=== PATIENT | male | born 1960 | race American Indian/Alaskan Native ===

== ENCOUNTER 2020-11-10 13:47 | Emergency (ER) | payer SELFPAY ==
[2020-11-10 15:09] VITALS: BP 129/88
--- NOTE | 2020-11-10 15:17 | Event Note ---
ED Screening Note Date of service: 11/10/20 Time: 15:16 ED Screening Note: c/o right thigh pain no injury denies PMHx This initial assessment/diagnostic orders/clinical plan/treatment(s) is/are subject to change based on patients health status, clinical progression and re- assessment by fellow clinical providers in the ED. Further treatment and workup at subsequent clinical providers discretion. Patient/guardian urged not to elope from the ED as their condition may be serious if not clinically assessed and managed. Initial orders include: US XR
--- NOTE | 2020-11-10 16:13 | XRay Report ---
RIGHT FEMUR 4 VIEWS INDICATION / CLINICAL INFORMATION: Pain along the right thigh, no known injury. COMPARISON: None available. FINDINGS: BONES and JOINT(S): No acute fracture or subluxation. There is mild osteoarthritis of the hip. SOFT TISSUES: No significant abnormality. ADDITIONAL FINDINGS: None. IMPRESSION: 1. No acute findings. 2. Mild right hip osteoarthritis. Signer Name: Esteban Miranda MD Signed: 11/10/2020 4:08 PM Workstation Name: [id number]
--- NOTE | 2020-11-10 16:30 | Vascular Lab Report ---
Bilateral lower extremity Doppler venous ultrasound INDICATION: Pain FINDINGS: Bilateral common femoral veins, superficial femoral veins and popliteal veins have normal c ompressibility and phasic flow. IMPRESSION: No evidence for DVT in bilateral lower extremities. Signer Name: Brad Corbin MD Signed: 11/10/2020 4:25 PM Workstation Name: [id number]
--- NOTE | 2020-11-10 16:47 | Emergency Department Report ---
ED Extremity Problem HPI - General Chief complaint: Extremity Problem,Nontraumatic Stated complaint: RT LEG PAIN Time Seen by Provider: 11/10/20 16:21 Source: patient Mode of arrival: Ambulatory Limitations: No Limitations - History of Present Illness Initial comments: Patient is a 60-year-old male presents emergency room complaints of right lateral thigh pain and right lateral knee pain that began a month ago. He denies any fall or injury. He states that he had recently just started back to work. 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 He denies any leg swelling, calf pain, numbness, weakness, chest pain, shortness of breath, palpitations. He has not seen a primary care doctor or orthopedic doctor for this complaint. He states that when he takes Tylenol his symptoms improve. He denies any past medical history. No allergies medications. - Related Data Previous Rx's Medication Instructions Recorded Last Taken Type Meloxicam [Mobic] 7.5 mg PO QDAY #14 tablet 11/10/20 Unknown Rx Menthol/Camphor [[place] 1 applicatio TP BID #18 oint...g. 11/10/20 Unknown Rx Ointment] ED Review of Systems ROS: Stated complaint: RT LEG PAIN Other details as noted in HPI Comment: All other systems reviewed and negative ED Past Medical Hx - Past Medical History Previous Medical History?: No - Surgical History Past Surgical History?: No - Medications Home Medications: Home Medications Medication Instructions Recorded Confirmed Last Taken Type Meloxicam [Mobic] 7.5 mg PO QDAY #14 tablet 11/10/20 Unknown Rx Menthol/Camphor [[place] 1 applicatio TP BID #18 oint...g. 11/10/20 Unknown Rx Ointment] ED Physical Exam - General Limitations: No Limitations General appearance: alert, in no apparent distress - Head Head exam: Present: atraumatic, normocephalic - Eye Eye exam: Present: normal appearance - ENT ENT exam: Present: mucous membranes moist - Respiratory Respiratory exam: Present: normal lung sounds bilaterally. Absent: respiratory distress, wheezes, rales, rhonchi, stridor, chest wall tenderness, accessory muscle use, decreased breath sounds, prolonged expiratory - Cardiovascular Cardiovascular Exam: Present: normal rhythm, tachycardia (mildly), normal heart sounds. Absent: systolic murmur, diastolic murmur, rubs, gallop - Extremities Exam Extremities exam: Present: other (mild ttp to the right lateral knee and right lateral thigh, no bony ttp of the RLE, no edema of the lower extremity, no calf ttp, no deformity, no skin changes, neurovascularly intact with 2+ dp pulse) - Neurological Exam Neurological exam: Present: alert, oriented X3 - Psychiatric Psychiatric exam: Present: normal affect, normal mood - Skin Skin exam: Present: warm, dry, intact ED Course Vital Signs 11/10/20 11/10/20 15:08 16:42 Temperature 98.2 F Pulse Rate 111 H 105 H Respiratory 18 Rate Blood Pressure 129/88 [Right] O2 Sat by Pulse 97 96 Oximetry ED Medical Decision Making - Lab Data Vital Signs 11/10/20 11/10/20 15:08 16:42 Temperature 98.2 F Pulse Rate 111 H 105 H Respiratory 18 Rate Blood Pressure 129/88 [Right] O2 Sat by Pulse 97 96 Oximetry - Radiology Data Radiology results: report reviewed Ordering Physician: RADHA ELIAS Date of Service: 11/10/20 Procedure(s): XR femur 2+V RT Accession Number(s): [id number] cc: RADHA ELIAS Fluoro Time In Minutes: RIGHT FEMUR 4 VIEWS INDICATION / CLINICAL INFORMATION: Pain along the right thigh, no known injury. COMPARISON: None available. FINDINGS: BONES and JOINT(S): No acute fracture or subluxation. There is mild osteoarthr itis of the hip. SOFT TISSUES: No significant abnormality. ADDITIONAL FINDINGS: None. IMPRESSION: 1. No acute findings. 2. Mild right hip osteoarthritis. Signer Name: Esteban Miranda MD Signed: 11/10/2020 4:08 PM Workstation Name: [id number] Transcribed By: [place] Dictated By: Esteban Miranda MD Electronically Authenticated By: Esteban Miranda MD Signed Date/Time: 11/10/201607 DD/ 07 TD/TT: Ordering Physician: RADHA ELIAS Date of Service: 11/10/20 Procedure(s): VL venous duplex LE RT Accession Number(s): [id number] cc: RADHA ELIAS Bilateral lower extremity Doppler venous ultrasound INDICATION: Pain FINDINGS: Bilateral common femoral veins, superficial femoral veins and popliteal veins have normal compressibility and phasic flow. IMPRESSION: No evidence for DVT in bilateral lower extremities. Signer Name: Brad Corbin MD Signed: 11/10/2020 4:25 PM Workstation Name: [id number] Transcribed By: DEVON Dictated By: АННА CORBIN MD Electronically Authenticated By: АННА CORBIN MD Signed Date/Time: 11/10/201624 DD/ 22 TD/TT: Print Cancel - Medical Decision Making Patient is a 60-year-old male presents emergency room complaints of right lateral thigh pain and right lateral knee pain that began a month ago. He denies any fall or injury. He states that he had recently just started back to work. 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 He denies any leg swelling, calf pain, numbness, weakness, chest pain, shortness of breath, palpitations. He has not seen a primary care doctor or orthopedic doctor for this complaint. He states that when he takes Tylenol his symptoms improve. He denies any past medical history. No allergies medications. Vitals with mild tachycardia which improved upon repeat, otherwise stable. on exam:mild ttp to the right lateral knee and right lateral thigh, no bony ttp of the RLE, no edema of the lower extremity, no calf ttp, no deformity, no skin changes, neurovascularly intact with 2+ dp pulse. Orders placed and completed prior to my examination. XR right hip: 1. No acute findings. 2. Mild right hip osteoarthritis. US BLE: No evidence for DVT in bilateral lower extremities. Discussed all results with patient and answered questions. Symptoms could be related to arthritis versus tendinitis versus IT band syndrome. Patient be referred to orthopedic doctor. Patient given prescription for Mobic and [place] balm ointment. Advised patient Please use medication as prescribed. May use ice for 15 minutes time,heating pad , rest, elevation of the leg. follow up with a primary care doctor. Follow-up with orthopedic doctor. Return to emergency room for new or worsening symptoms. Critical care attestation.: If time is entered above; I have spent that time in minutes in the direct care of this critically ill patient, excluding procedure time. ED Disposition Clinical Impression: Right leg pain, Arthritis of hip Disposition: DC-01 TO HOME OR SELFCARE Is pt being admited?: No Does the pt Need Aspirin: No Condition: Stable Instructions: Iliotibial Band Syndrome Additional Instructions: Please use medication as prescribed. May use ice for 15 minutes time,heating p ad , rest, elevation of the leg. follow up with a primary care doctor. Follow-up with orthopedic doctor. Return to emergency room for new or worsening symptoms. Prescriptions: Meloxicam [Mobic] 7.5 mg PO QDAY #14 tablet Menthol/Camphor [[place] Ointment] 1 applicatio TP BID #18 oint...g. Referrals: PRIMARY CAREMD [Primary Care Provider] - 3-5 Days ELMER FONTANA MD [Staff Physician] - 3-5 Days [facility] [Provider Group] - 3-5 Days FRANNIE LICEA MD [Staff Physician] - 3-5 Days [facility] [Provider Group] - 3-5 Days Forms: Work/School Release Form(ED) Time of Disposition: 16:45 Print Language: FRENCH
== END 2020-11-10 17:15 | disposition home or self-care (01) ==
LOC: ED 13:47
DX: M16.11 Unilateral primary osteoarthritis, right hip (principal); M79.604 Pain in right leg; Z79.899 Other long term (current) drug therapy

== ENCOUNTER 2021-02-01 11:14 | Emergency (ER) | payer OTHER ==
--- NOTE | 2021-02-01 12:15 | Emergency Department Report ---
ED Extremity Problem HPI - General Chief complaint: Extremity Problem,Nontraumatic Stated complaint: LEG PAINS RT Time Seen by Provider: 02/01/21 12:10 Source: patient Mode of arrival: Ambulatory Limitations: No Limitations - History of Present Illness Initial comments: Patient is a 60-year-old male presents emergency room with complaints of right leg pain for 3 months. Patient states that he went to an orthopedic and they advised him to go to physical therapy but he states that he never went. He denies any fall or injury. He denies any numbness, weakness, calf pain, leg swelling. Patient denies any past medical history. No allergies to medications. Patient was evaluated for the same complaint 2 months ago in the emergency department and had an x-ray of the right femur which showed mild osteoarthritis and he had a ultrasound of the bilateral lower extremities which showed no acute process. - Related Data Previous Rx's Medication Instructions Recorded Last Taken Type Meloxicam [Mobic] 7.5 mg PO QDAY #20 tablet 02/01/21 Unknown Rx Menthol/Camphor [[place] 1 applicatio TP BID #18 oint...g. 02/01/21 Unknown Rx Ointment] methOCARBAMOL [Robaxin TAB] 500 mg PO BID PRN #20 tab 02/01/21 Unknown Rx Allergies Allergy/AdvReac Type Severity Reaction Status Date / Time No Known Allergies Allergy Verified 02/01/21 11:39 ED Review of Systems ROS: Stated complaint: LEG PAINS RT Other details as noted in HPI Comment: All other systems reviewed and negative ED Past Medical Hx - Social History Smoking Status: Current Some Day Smoker Substance Use Type: None - Medications Home Medications: Home Medications Medication Instructions Recorded Confirmed Last Taken Type Meloxicam [Mobic] 7.5 mg PO QDAY #20 tablet 02/01/21 Unknown Rx Menthol/Camphor [[place] 1 applicatio TP BID #18 oint...g. 02/01/21 Unknown Rx Ointment] methOCARBAMOL [Robaxin TAB] 500 mg PO BID PRN #20 tab 02/01/21 Unknown Rx ED Physical Exam - General Limitations: No Limitations General appearance: alert, in no apparent distress - Head Head exam: Present: atraumatic, normocephalic - Eye Eye exam: Present: normal appearance - ENT ENT exam: Present: mucous membranes moist - Respiratory Respiratory exam: Present: normal lung sounds bilaterally. Absent: respiratory distress, wheezes, rales, rhonchi, stridor, chest wall tenderness, accessory muscle use, decreased breath sounds, prolonged expiratory - Cardiovascular Cardiovascular Exam: Present: regular rate, normal rhythm, normal heart sounds. Absent: systolic murmur, diastolic murmur, rubs, gallop - Extremities Exam Extremities exam: Present: other (no bony ttp of the RLE, FROM of the RLE, no deformity, no skin changes, no pedal edema, neurovascularly intact) - Neurological Exam Neurological exam: Present: alert, oriented X3 - Psychiatric Psychiatric exam: Present: normal affect, normal mood - Skin Skin exam: Present: warm, dry, intact ED Course Vital Signs 02/01/21 11:37 Temperature 98.4 F Pulse Rate 100 H Respiratory 18 Rate Blood Pressure 138/82 O2 Sat by Pulse 97 Oximetry ED Medical Decision Making - Medical Decision Making Patient is a 60-year-old male presents emergency room with complaints of right leg pain for 3 months. Patient states that he went to an orthopedic and they advised him to go to physical therapy but he states that he never went. He denies any fall or injury. He denies any numbness, weakness, calf pain, leg swelling. Patient denies any past medical history. No allergies to medicat ions. Patient was evaluated for the same complaint 2 months ago in the emergency department and had an x-ray of the right femur which showed mild osteoarthritis and he had a ultrasound of the bilateral lower extremities which showed no acute process. on exam: no bony ttp of the RLE, FROM of the RLE, no deformity, no skin changes, no pedal edema, neurovascularly intact. Patient has had no acute trauma. He has no signs of septic joint or gout. No clinical signs of DVT, he just had a normal ultrasound in November. No clinical signs of acute arterial occlusion, he has 2+ distal pulses. Symptoms could be related to osteoarthritis which was seen on his last x-ray. Patient given prescription for medications. Discussed the importance of following back up with orthopedic and following their treatment plan. Advised patient Please use medication as prescribed. Do not drive or operate machinery while taking muscle relaxer. May use ice pack, heating pad, rest, epsom salt bath. Do not use ointment while using heat or ice. Follow-up with orthopedic doctor. Return to emergency room for any new or worsening symptoms. Critical care attestation.: If time is entered above; I have spent that time in minutes in the direct care of this critically ill patient, excluding procedure time. ED Disposition Clinical Impression: Right leg pain Disposition: DC-01 TO HOME OR SELFCARE Is pt being admited?: No Does the pt Need Aspirin: No Condition: Stable Instructions: Osteoarthritis Additional Instructions: Please use medication as prescribed. Do not drive or operate machinery while taking muscle relaxer. May use ice pack, heating pad, rest, epsom salt bath. Do not use ointment while using heat or ice. Follow-up with orthopedic doctor. Return to emergency room for any new or worsening symptoms. Prescriptions: Meloxicam [Mobic] 7.5 mg PO QDAY #20 tablet methOCARBAMOL [Robaxin TAB] 500 mg PO BID PRN #20 tab PRN Reason: muscle spasm/pain Menthol/Camphor [[place] Ointment] 1 applicatio TP BID #18 oint...g. Referrals: [facility] [Provider Group] - 3-5 Days FRANNIE LICEA MD [Staff Physician] - 3-5 Days Time of Disposition: 12:17 Print Language: DIVEHI
[2021-02-01 12:45] VITALS: BP 137/88
== END 2021-02-01 12:44 | disposition home or self-care (01) ==
LOC: ED 11:14
DX: M79.604 Pain in right leg (principal); F17.200 Nicotine dependence, unspecified, uncomplicated; Z79.899 Other long term (current) drug therapy
CPT/HCPCS: 99282